=== PATIENT | male | born 1970 ===

== ENCOUNTER 2024-04-11 20:03 | Observation (INO) | payer BC ==
[~2024-04-11] VITALS: Ht 170.2 cm; Wt 79.0 kg
[2024-04-11] MEDS ORDERED: ondansetron HCL 4 MG/2 ML VIAL IV ONE (20:15)
[2024-04-11] MEDS ORDERED: SODIUM CHLORIDE 0.9% 1,000 ML IV ONE (20:15)
[2024-04-11] MEDS ORDERED: MORPHINE SULFATE 4 MG/ML VIAL IV ONE (20:15)
[2024-04-11 20:23] LABS: BASOPHILS 0.5 % (0-2); EOSINOPHILS 1.8 % (0-6); HEMATOCRIT 48.8 % (35.0-50.0); HEMOGLOBIN 16.5 g/dL (12.0-18.0); LYMPHOCYTES 20.4 % (24-44); MCH 30.1 (27-36); MCHC 33.8 g/dl (30-36); MCV 89.2 fl (81-99); MONOCYTES 11.1 % (0-12); NEUTROPHILS 66.2 % (39-80); PLATELET COUNT 274 K/uL (140-440); RBC 5.47 M/ul (4.3-5.7); RDW 13.8 (10.5-15.0)
[2024-04-11 20:38] LABS: ALBUMIN 3.9 g/dL (3.4-5.0); ALBUMIN/GLOBULIN RATIO 1.18 (1.1-2.4); ANION GAP 14.9 (7-21); BILIRUBIN, TOTAL 0.4 ng/dL (0.2-1.0); BUN/CREATININE RATIO 10.92 (6.0-28.6); CREATININE, SERUM 1.19 mg/dL (0.70-1.30); POTASSIUM 3.9 mmol/L (3.5-5.1); PROTEIN, TOTAL 7.2 g/dL (6.4-8.2)
[2024-04-11 21:31] LABS: BILIRUBIN, URINE NEGATIVE (negative); BLOOD/HGB, URINE NEGATIVE (Negative); KETONE, URINE NEGATIVE (Negative); LEUK ESTERASE, URINE NEGATIVE (negative); NITRITE, URINE NEGATIVE (negative)
[2024-04-11] MEDS ORDERED: FAMOTIDINE 20 MG/ 2 ML VIAL IV SCH (21:32)
[2024-04-11] MEDS ORDERED: ACETAMINOPHEN 325 MG TAB PO PRN (21:45)
[2024-04-11] MEDS ORDERED: ondansetron HCL 4 MG/2 ML VIAL IV PRN (21:45)
[2024-04-11] MEDS ORDERED: MORPHINE SULFATE 4 MG/ML VIAL IV PRN (21:45)
[2024-04-11] MEDS ORDERED: DEXTROSE 5% - LACTATED RINGERS 1,000 ML IV SCH (21:45)
[2024-04-11] MEDS ORDERED: CEFAZOLIN SODIUM 2 GM/20 ML SYR IV SCH (22:00)
[2024-04-11 22:09] VITALS: BP 144/77
--- NOTE | 2024-04-11 22:10 | NUR ---
PATIENT ARRIVED TO UNIT VIA STRETCHER. ABLE TO TRANSFER SELF INTO MED/SURG BED. REPORTS PAIN 4/10 AT THIS TIME. ABD TENDER AND GUARDED UPPER RIGHT QUADRANT. REPORTS NO FEELING OF NAUSEA AT THIS TIME. BOWEL TONES HYPOACTIVE UPPER QUADRANTS AND ACTIVE IN BILATERAL LOWER QUADRANTS. IV SITE PATENT, MAINTANCE FLUIDS HUNG AND INFUSING WITH NO ISSUES AT THIS TIME. PATIENT ORIENTED TO CALL LIGHT. NO FURTHER NEEDS AT THIS TIME. FAMILY AT BEDSIDE. CALL LIGHT WITHIN REACH.
[2024-04-11] MEDS ORDERED: ACETAMINOPHEN500 M1 PO (22:51)
[2024-04-11] MEDS ORDERED: IBUPROFEN200 MG PO (22:53)
[2024-04-11 23:20] VITALS: BP 144/77
[2024-04-12] VITALS (9 sets, daily range): BP systolic 106–135; BP diastolic 63–86
--- NOTE | 2024-04-12 | NUR ---
PATIENT RESTING IN BED WITH EYES CLOSED. RESPIRATIONS EVEN AND UNLABORED. IVF INFUSING WITH NO ISSUES AT THIS TIME. CALL LIGHT WITHIN REACH.
--- NOTE | 2024-04-12 02:08 | NUR ---
PATIENT RESTING IN BED. VSS. DENIES ANY NAUSEA AT THIS TIME. BOWEL TONES ACTIVE X 4 QUADRANTS. DENIES ANY PAIN AT THIS TIME. IVF INFUSING WITH NO ISSUES OR CONCERNS. NO NEEDS AT THIS TIME. CALL LIGHT WITHIN REACH.
[2024-04-12 05:25] LABS: HEMATOCRIT 44.5 % (35.0-50.0); HEMOGLOBIN 15.2 g/dL (12.0-18.0); MCH 30.6 (27-36); MCHC 34.1 g/dl (30-36); MCV 89.7 fl (81-99); PLATELET COUNT 237 K/uL (140-440); RBC 4.96 M/ul (4.3-5.7); RDW 13.9 (10.5-15.0)
[2024-04-12 05:41] LABS: ANION GAP 12.6 (7-21); BILIRUBIN, TOTAL 0.7 ng/dL (0.2-1.0); BUN/CREATININE RATIO 9.09 (6.0-28.6); CALCIUM 8.1 mg/dL (8.5-10.1); CREATININE, SERUM 0.99 mg/dL (0.70-1.30); POTASSIUM 3.6 mmol/L (3.5-5.1)
[2024-04-12 05:52] LABS: EOSINOPHILS, MANUAL DIFF 1; LYMPHOCYTES, MANUAL DIFF 20; MONOCYTES, MANUAL DIFF 9; NEUTROPHILS, MANUAL DIFF 70
--- NOTE | 2024-04-12 05:57 | NUR ---
patient resting in bed awake with at bedside. iv infusing with no issues at this time. scheduled meds given see mar. denies any pain or discomfort at this time. bowel tones active x 4 quadrants. No further needs at this time. call light within reach.
--- NOTE | 2024-04-12 07:47 | NUR ---
PT RESTING EYES CLOSED AT TIME OF SHIFT REPORT, LEFT UNDISTURBED. IS PRESENT ON THE COUCH. CALL LIGHT IN REACH PT REMAINS NPO
[2024-04-12] MEDS ORDERED: LACTATED RINGER'S 1,000 ML IV SCH (09:15)
[2024-04-12] MEDS ORDERED: FAMOTIDINE 20 MG/ 2 ML VIAL IV ONE (09:15)
--- NOTE | 2024-04-12 09:19 | NUR ---
DR DE LA O IN TO SEE PT. DISCUSSES PROCEEDURE AT LENGTH ALL QUESTIONS ANSWERED. PT WAS PROVIDED EDUCATION R/T KD PRIOR TO MD VISIT, PRINTED IN [place]. PT BEING PREPPED FOR O/R NOW
[2024-04-12] MEDS ORDERED: SODIUM CHLORIDE 0.9% 40 ML IV ONE (09:30)
[2024-04-12] MEDS ORDERED: iopamidoL 30 ML VIAL ONE (09:30)
--- NOTE | 2024-04-12 09:40 | HP ---
[facility] [address], [place] [address] Signed ADMISSION DATE: 04/11/2024 REASON FOR ADMISSION: Acute calculous cholecystitis and concurrent appendiceal fecalith. HISTORY OF PRESENT ILLNESS: This 54-year-old man is from [place], [place] accompanied by his . 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 He presented to the emergency room at approximately 10:30 last night where he was evaluated by Dr. Rios with complaints of right upper abdominal pain that had been going on since eating tacos earlier in the day. He had vomiting, was feeling very sick and had a fair amount of pain. He proceeded to drive to the [place] on his way home to [place] and began having worsening pain in the right upper abdomen. His presentation to the emergency room showed him to have normal vital signs, but tender in the right upper abdomen. A CT scan was performed, which showed gallstones without evidence of acute cholecystitis and large calcified fecalith in the distal appendix, but no appendiceal inflammation. His white count was elevated to 12.4. Chem profile essentially normal. Alkaline phosphatase 77, ALT 74, AST 18, and bilirubin 0.4. The patient has had episodic posterior right thoracic pain overtime and in retrospect probably has represented biliary colic from [id number]. A urinalysis was performed, which showed no evidence of blood loss less likely to be nephrolithiasis related. PAST MEDICAL HISTORY: Rather unremarkable. PAST SURGICAL HISTORY: He denies any prior operations. MEDICATIONS: His only medications at home are Tylenol and Motrin for abdominal pain. SOCIAL HISTORY: He does not use alcohol or drugs. He is . He is accompanied by his at this time. REVIEW OF SYSTEMS: He denies any shortness of breath or chest pain. His pain is improved since admission last night with IV antibiotics, parenteral pain medication and IV fluids. PHYSICAL EXAMINATION: GENERAL: Pleasant man, who speaks Albanian reasonably well. Electronically Signed By: BRITTON DE LA O MD 04/12/24 0940 PATIENT NAME: LORAINE ROMERO HISTORY AND PHYSICAL DATE OF : 74 REPORT #: [id number] PHYSICIAN: BRITTON DE LA O MD PCP: NO PRIMARY CARE PHYSICIAN REPORT IS CONFIDENTIAL AND NOT TO BE RELEASED WITHOUT AUTHORIZATION [facility] [address], [place] [address] Signed VITAL SIGNS: Height is 5 feet 7 inches, weight 279 kg. BMI is 27.3. NECK: Trachea is midline. CHEST: Clear. HEART: Regular without murmur. ABDOMEN: Nondistended and soft. There is mild tenderness in the right upper quadrant area, but there is no palpable mass. He has no ascites. He has no tenderness in the right lower quadrant. EXTREMITIES: Show no clubbing, cyanosis, or edema. LABORATORY STUDIES: This morning show an increased white count of 15.2, hematocrit 44.5, platelets 237,000. Chem profile showing normal liver enzymes except elevated ALT of 60. Lipase at admission was 45. Electrolytes are normal. Creatinine is 0.99, previously 1.19. A CT scan of the abdomen and pelvis confirms cholelithiasis without evidence of acute cholecystitis and large calcified fecalith of the distal appendix without appendiceal inflammation. ASSESSMENT: The patient has clinical findings consistent with acute calculous cholecystitis including elevated white count, right upper quadrant tenderness. CT scan finding showing gallstones. Ambiguous presentation initially suggested the possibility of appendicitis; however, he seems to have no tenderness in the right lower quadrant at this time. Nevertheless, given multiple fecaliths, the consideration for concurrent appendectomy may be made depending on clinical appearance of the appendix. I explained to the patient and his through the use of drawings on the white board in the room, the pathophysiology of biliary disease and recommendation of treatment to include cholecystectomy preferred by laparoscopic approach. Possible laparoscopic appendectomy would be a consideration also. The risk of bleeding, infection, bile duct injury, need for open procedure, need for common duct exploration, and of course failure to cure his symptoms were all reviewed in detail. They understand and wished to proceed. We will continue to provide IV fluids, antibiotics, parental pain medication, so forth anticipating surgery this morning. Britton De La O MD Electronically Signed By: BRITTON DE LA O MD 04/12/24 0940 PATIENT NAME: LORAINE ROMERO HISTORY AND PHYSICAL DATE OF : 74 REPORT #: [id number] PHYSICIAN: BRITTON DE LA O MD PCP: NO PRIMARY CARE PHYSICIAN REPORT IS CONFIDENTIAL AND NOT TO BE RELEASED WITHOUT AUTHORIZATION [facility] [address] [facility] [place], [place] [address] Signed /MODL /[id number] cc: Sharon Cardoso MD Copies: ~ Electronically Signed By: BRITTON DE LA O MD 04/12/24 0940 PATIENT NAME: LORAINE ROMERO HISTORY AND PHYSICAL DATE OF : 74 REPORT #: [id number] PHYSICIAN: BRITTON DE LA O MD PCP: NO PRIMARY CARE PHYSICIAN REPORT IS CONFIDENTIAL AND NOT TO BE RELEASED WITHOUT AUTHORIZATION
--- NOTE | 2024-04-12 09:43 | NUR ---
WIPE DOWN AND PRE-OP ED COMPLETED PT WAITING FOR O/R CREW DENIES QUESTIONS OR CONCERNS
[2024-04-12] MEDS ORDERED: KETAMINE in NS 50 MG/5 ML SYR ONE (10:13)
--- NOTE | 2024-04-12 10:32 | NUR ---
pt to o/r via bed
[2024-04-12] MEDS ORDERED: dexmedeTOMIDine HCl 200 MCG/2 ML VIAL ONE (10:34)
[2024-04-12] MEDS ORDERED: KETOROLAC TROMETHAMINE 30 MG/ML VIAL ONE (10:48)
[2024-04-12] MEDS ORDERED: SUGAMMADEX SODIUM 200 MG/2 ML ML ONE (10:48)
[2024-04-12] MEDS ORDERED: DEXAMETHASONE SOD PHOS 4 MG/ML VIAL ONE (10:48)
[2024-04-12] MEDS ORDERED: ondansetron HCL 4 MG/2 ML VIAL ONE (10:48)
[2024-04-12] MEDS ORDERED: ACETAMINOPHEN 1,000 MG/100 ML VIAL ONE (10:49)
[2024-04-12] MEDS ORDERED: LACTATED RINGER'S 1,000 ML IV ONE (12:02)
[2024-04-12] MEDS ORDERED: ROCURONIUM BROMIDE 50 MG/5 ML SYR ONE (12:03)
[2024-04-12] MEDS ORDERED: propofoL 200 MG/20 ML VIAL ONE (12:03)
[2024-04-12] MEDS ORDERED: IBLOOD GLUCOSE TEST STRIP 1 EA TEST VI PRN (12:15)
[2024-04-12] MEDS ORDERED: HYDROmorphone HCL 1 MG/ML SYR IV PRN (12:15)
[2024-04-12] MEDS ORDERED: fentaNYL citrate 50 MCG/ML SDV IV PRN (12:15)
[2024-04-12] MEDS ORDERED: ondansetron HCL 4 MG/2 ML VIAL IV PRN (12:15)
[2024-04-12] MEDS ORDERED: NALOXONE HCL 0.4 MG SYR IV PRN (12:15)
[2024-04-12] MEDS ORDERED: droPERidol 5 MG/2 ML VIAL IV PRN (12:15)
--- NOTE | 2024-04-12 12:25 | NUR ---
04/12/24 1225 Sheets,Hannah 1216 PT ARRIVED TO PACU ON 6L VIA MASK, RESP EVEN AND UNLABORED. PT REACTIVE TO PAINFUL STIMULI BUT EYES REMAIN CLOSED AND PT UNABLE TO FOLLOW COMMANDS. 1221 PT MOVING ARMS IN BED AND RN TRYING TO REORIENT PT TO PACU, PT EYES REMAIN CLOSED. SMALL AMOUNT OF COUGHING NOTED. 1223 PT RESTING AND RELAXED IN BED, RESP EVEN AND UNLABORED. 1225 PT REACHING UP FOR HIS FACE, O2 REMOVED.
[2024-04-12] MEDS ORDERED: PERCOCET 7.5-31 EACH PO (12:43)
[2024-04-12] MEDS ORDERED: MOTRIN IB200 MG PO (12:44)
[2024-04-12] MEDS ORDERED: TYLENOL EXTRA500 MG PO (12:44)
[2024-04-12] MEDS ORDERED: IBUPROFEN 600 MG TAB PO PRN (12:45)
[2024-04-12] MEDS ORDERED: ACETAMINOPHEN 500 MG TAB PO PRN (12:45)
[2024-04-12] MEDS ORDERED: OXYCODONE/APAP 7.5/325 TAB PO PRN (12:45)
[2024-04-12] MEDS ORDERED: fentaNYL citrate 50 MCG/ML SDV ONE (12:58)
--- NOTE | 2024-04-12 13:20 | NUR ---
PT BACK FROM O/R ALERT AND INTERACTIVE. IS PRESENT. PT SIPPING WATER DENIES PAIN OR NEEDS OF. SCD'S AND PULSE OX IN PLACE
--- NOTE | 2024-04-12 13:34 | NUR ---
PT USES URINAL IS ABLE TO VOID WITHOUT DIFFICULTY. IS PRESENT IN THE ROOM. PT AGREES HIS ABDOMEN HURTS A BIT, APPLESAUCE CRACKER AND PAIN PILL ADMINISTERED
[2024-04-12] MEDS ORDERED: CEFAZOLIN SODIUM 2 GM/20 ML SYR IV SCH (14:00)
--- NOTE | 2024-04-12 14:24 | NUR ---
PT CONTINUES AWAKE VISITING ON THE PHONE. DENIES PAIN OR NAUSEA. PT SIPPING H20 TOLERATES APPLESAUCE CRACKERS AND PAIN PILL.
--- NOTE | 2024-04-12 15:15 | NUR ---
PT CONTINUES TO DO WELL POST OP. STANDS AT EDGE OF BED AND AMBULATES THE ROOM STEADY ON HIS FEET. CHOOSES BED INSTEAD OF CHAIR AFTERWARD. HAS GONE TO GET FRUIT AND OTHER PT FOOD REQUESTS. PT SIPPING WATER. DENIES PAIN OR NAUSEA, INQUIRES ABOUT GOING HOME TODAY.
--- NOTE | 2024-04-12 16:43 | NUR ---
PT REQUESTS TO GO HOME AFTER EATING EVENING MEAL. STATES HE FEELS FINE. DR DE LA O CONTACTED AND HE STATES THAT WILL BE FINE IF PT AND HIS BOTH FEEL CERTAIN.
--- NOTE | 2024-04-15 12:22 | OR ---
[facility] [address], [place] [address] Signed DATE OF OPERATION: 04/11/2024 SURGEON: Britton De La O MD PREOPERATIVE DIAGNOSES: 1. Acute calculous cholecystitis. 2. Enlarged distal tip of appendix, possible fecalith. POSTOPERATIVE DIAGNOSES: 1. Acute calculous cholecystitis. 2. Enlarged distal appendix initially thought to be neoplasm, probably more likely large fecalith. PROCEDURES: 1. Laparoscopic cholecystectomy with intraoperative cholangiogram. 2. Surgeon-directed fluoroscopy. 3. Laparoscopic appendectomy. ANESTHESIA: General endotracheal, Betty Baljit, SOLE STAINER and local 10 mL of 0.25% Marcaine with epinephrine. INDICATION: This 54-year-old man was traveling through this area from [place], [place] where he lives. He had been in the [facility] yesterday and at the [facility] last night. He began having right subcostal and epigastric pain following taco meal later in the day yesterday. His symptoms worsened enough and he had nausea, vomiting and tenderness on abdominal exam. His tenderness was in the right upper and right mid abdomen. A CT scan was performed under the direction of Dr. Rios, the emergency room physician. This showed at least one gallstone in the gallbladder apparently wedged in the infundibulum as well as possible multiple gallstones of the appendix. The patient has been fluid resuscitated, now to undergo cholecystectomy and possible appendectomy depending on the findings. He understands as does his the risk of bleeding, infection, bile duct injury, need for open procedure and need for other indicated procedures. Understanding this, they wished to proceed. FINDINGS: Indeed the gallbladder was inflamed. It was edematous. There were omental adhesions to its undersurface. Liver was normal. Cholangiogram was normal with small sized ducts but conventional anatomy and a relatively long cystic duct. The gallbladder itself had Electronically Signed By: BRITTON DE LA O MD 04/15/24 1222 PATIENT NAME: LORAINE ROMERO OPERATIVE REPORT DATE OF : 74 REPORT #: [id number] PHYSICIAN: BRITTON DE LA O MD PCP: NO PRIMARY CARE PHYSICIAN REPORT IS CONFIDENTIAL AND NOT TO BE RELEASED WITHOUT AUTHORIZATION [facility] [address], [place] [address] Signed cholesterolosis as well as a small 1 cm dark gallstone wedged into the infundibulum. Cholangiogram was normal as described. The appendix itself was well visualized and had some chronic scarring associated with it. The distal portion was bulbous and quite large and suggestive actually of neoplasm. Appendectomy was additionally performed. Once the appendix was extracted from the abdomen, palpation of the distal portion showed the enlargement to be likely related to a large fecalith rather than neoplasm proper. Wide resection of the mesoappendix was accomplished as well however. PROCEDURE IN DETAIL: The patient was brought to the operating room and given a general endotracheal anesthetic. Preoperative antibiotic Ancef was given. Sequential compression device stockings were used and heparin subcutaneously administered. The abdomen was clipped and prepared with chlorhexidine solution and draped sterilely. An infraumbilical incision was made and using an open Eleazar cannula technique pneumoperitoneum was achieved to a level of 14 mmHg of carbon dioxide gas. Intra-abdominal inspection showed no sign of ascites or carcinomatosis. The liver appeared normal. The gallbladder was partially obscured from view, but did have inflammatory change and edema. Three additional trocars were placed in their usual configuration in the subxiphoid, right midclavicular, and right anterior axillary line. The gallbladder was elevated cephalad and found to have adhesions adherent to its undersurface. These were taken down with blunt and electrocautery dissection. This allowed for better elevation of the gallbladder. The gallbladder was retracted laterally and using blunt and electrocautery dissection, the triangle of Calot was dissected free. A dominant cystic arterial branch was identified and was doubly clipped. Once the critical view of safety was well demonstrated, the clip was applied across the gallbladder cystic duct junction and a transverse choledochotomy was made in the cystic duct. Using an [employer] type cholangiocatheter system, intraoperative cholangiography was undertaken showing free flow of contrast in the biliary tree with prompt emptying into the duodenum. The cystic duct was quite elongated and the biliary tree was surprisingly narrow, but without stricture or abnormality otherwise. There was no sign of filling defect, biliary anomaly, or stone. There was no neoplasm. Catheter was removed and the cystic duct was triply clipped and divided and the gallbladder was dissected free in a retrograde fashion using electrocautery. Clips were applied to small vessels in the liver bed as well. Gallbladder was extracted through the infraumbilical port site without problem, opened on the back table and found to have a relatively small 1 cm oblong dark gallstone within the infundibulum. Cholesterolosis of mucosa was noted as well. Irrigation was undertaken in the subhepatic space. There was no sign of bleeding or other problem. Electronically Signed By: BRITTON DE LA O MD 04/15/24 1222 PATIENT NAME: LORAINE ROMERO OPERATIVE REPORT DATE OF : 74 REPORT #: [id number] PHYSICIAN: BRITTON DE LA O MD PCP: NO PRIMARY CARE PHYSICIAN REPORT IS CONFIDENTIAL AND NOT TO BE RELEASED WITHOUT AUTHORIZATION [facility] [address], [place] [address] Signed Attention was turned towards the appendix. The camera was replaced to the epigastric port and using single instrument manipulation, identification of the right colon and cecum was undertaken. The patient had been in a reverse Trendelenburg [id number] configuration but was replaced to supine [id number] position. The appendix was not readily visible and therefore a right lower quadrant 5 mm port was placed and with two-hand manipulation, the cecum identified and ultimately appendix. The appendix did not look acutely inflamed, did have some injection. The distal portion of the appendix had a large bulbous end to it which was suggestive of possible carcinoid tumor despite the preoperative CT scan interpretation of multiple fecaliths. Excision was clearly indicated. Using blunt and electrocautery dissection, the mesoappendix was from the surrounding tissue. The appendix was relatively elongated. Ultimately, the base was identified and a window created between the base of the appendix and the appendix itself. Using an Endo-NICO stapling device with a vascular load, the base of the appendix was transected and flushed with the cecum. This allowed for better manipulation of the mesoappendix which was wider, we resected ultimately. The Endo-NICO stapling device was used to secure the vascular pedicle of the mesoappendix. The appendix was placed in an endobag and extracted through the infraumbilical port site. Palpation of the appendix itself showed the bulbous enlargement of the distal portion to be related to a firm probable fecalith rather than neoplasm proper. It was sent for permanent pathology. The appendix was not opened. Irrigation was undertaken in the right lower quadrant. There was no sign of bleeding or other problems. Staple lines were secured. The trocars were removed under direct visualization showing no sign of bleeding. The infraumbilical fascial incision was reapproximated with interrupted 0 Vicryl suture. All wounds were injected with 10 mL of 0.25% Marcaine with epinephrine in total. The skin was closed with interrupted 3-0 Vicryl. Steri-Strips were applied. The patient was ultimately extubated and transferred to the recovery room in good condition having suffered no complication. Sponge, needle, and instrument counts were reported as correct x3. MD BEBA Bentley/MODL /[id number] Electronically Signed By: BRITTON DE LA O MD 04/15/24 1222 PATIENT NAME: LORAINE ROMERO OPERATIVE REPORT DATE OF : 74 REPORT #: [id number] PHYSICIAN: BRITTON DE LA O MD PCP: NO PRIMARY CARE PHYSICIAN REPORT IS CONFIDENTIAL AND NOT TO BE RELEASED WITHOUT AUTHORIZATION [facility] [address] [place] [id number] Signed cc: Dr. Sharon Rios Copies: ~ Electronically Signed By: BRITTON DE LA O MD 04/15/24 1222 PATIENT NAME: LORAINE ROMERO OPERATIVE REPORT DATE OF : 74 REPORT #: [id number] PHYSICIAN: BRITTON DE LA O MD PCP: NO PRIMARY CARE PHYSICIAN REPORT IS CONFIDENTIAL AND NOT TO BE RELEASED WITHOUT AUTHORIZATION
--- NOTE | 2024-04-20 13:35 | PATH ---
[facility] [address], [place] [address] Signed SPECIMEN(S): A GALLBLADDER WITH STONE SPECIMEN(S): B APPENDIX WITH FECOLITH SPECIMEN SOURCE: A. GALLBLADDER WITH STONE B. APPENDIX WITH FECOLITH CLINICAL HISTORY: Cholelithiasis FINAL PATHOLOGIC DIAGNOSIS: A. Gallbladder, cholecystectomy: - Chronic calculous cholecystitis - One reactive lymph node B. Appendix, appendectomy: - Early acute appendicitis with a fecalith BRP MICROSCOPIC EXAMINATION: Histologic sections of all submitted blocks are examined by light microscopy. These findings, together with the gross examination, support the pathologic diagnosis. GROSS DESCRIPTION: A. The specimen, labeled and designated "Payton A" and designated on the requisition " gallbladder with stone," is received in formalin and consists of Specimen: Previously opened gallbladder. Dimensions: 7.0 x 4.5 x 0.4 cm. Serosa: Samaniego to violaceous smooth. Cystic Duct: Unobstructed, margin is inked black and shaved. Calculi: One green ovoid calculus (0.8 x 0.7 x 0.7 cm). Mucosa: Green and velvety with yellow flecking. Wall thickness: 0.3 cm. Lymph node: One samaniego possible pericystic lymph node measuring 0.8 cm in greatest mentioned, submitted entirely. Additional: None. Orthopedics Pediatric Physician sections are submitted in (A1). B. The specimen, labeled and designated "Payton, B" and designated on the requisition "appendix with fecalith," is received in formalin and consists of Specimen: Appendix with mesoappendix. Dimensions: 7.7 x 3.8 x 2.0 cm. PATIENT NAME: LORAINE ROMERO PATHOLOGY DATE OF : 74 REPORT #: [id number] PHYSICIAN: [facility] PCP: NO PRIMARY CARE PHYSICIAN REPORT IS CONFIDENTIAL AND NOT TO BE RELEASED WITHOUT AUTHORIZATION [facility] [address], [place] [address] Signed Serosa: Samaniego-pink. Defect: Not grossly identified. Inking: Staple line is inked Blue. Mucosa: Duque-samaniego to red-brown markedly attenuated at the tip. Fecalith: One brown-samaniego irregularly shaped and poorly calcified fecalith (2.3 x 1.5 x 1.4 cm) occluding the distal lumen. Additional: None. Orthopedics Pediatric Physician sections are submitted in (B1). AC (under the direct supervision of a pathologist) The Gross Description was prepared using a voice recognition system. The report was reviewed for accuracy; however, sound-alike word errors, addition and/or deletions may occur. If there is any question about this report, please contact Client Services. ADDITIONAL NOTES: Immunohistochemical and/or in situ hybridization studies if performed in this case included appropriate positive controls that reacted as expected. This test was developed and its performance characteristics determined by [facility]. It has not been cleared or approved by the U.S. Food and Drug Administration. The FDA has determined that such clearance or approval is not necessary. This test is used for clinical purposes. It should not be regarded as investigational or for research. [facility] is certified under the Clinical Laboratory Improvement Amendments of 1988 (CLIA) as qualified to perform high complexity clinical laboratory testing. PERFORMING LABORATORY: Technical component was performed by [facility], [address] [place] [id number] (CLIA# [id number]). Professional interpretation was performed by [facility] [address] [facility] [id number] Diagnostician: Aneudy Butcher MD Pathologist Electronically Signed 04/20/2024 Copies: PATIENT NAME: LORAINE ROMERO PATHOLOGY DATE OF : 74 REPORT #: [id number] PHYSICIAN: [facility] PCP: NO PRIMARY CARE PHYSICIAN REPORT IS CONFIDENTIAL AND NOT TO BE RELEASED WITHOUT AUTHORIZATION [address] [address] Signed ~ PATIENT NAME: LORAINE ROMERO PATHOLOGY DATE OF : 74 REPORT #: [id number] PHYSICIAN: [facility] PCP: NO PRIMARY CARE PHYSICIAN REPORT IS CONFIDENTIAL AND NOT TO BE RELEASED WITHOUT AUTHORIZATION
== END 2024-04-12 17:05 | disposition home or self-care (01) ==
LOC: ED 20:03 → MS 20:05 → ED 21:47 → MS 04-12 17:05
PROVIDERS: Family Medicine; ADMIT Surgery; ATTEND Surgery
PROC: 0FT44ZZ Resection of Gallbladder, Percutaneous Endoscopic Approach (ICD-10-PCS; principal; 2024-04-11)
PROC: 0DTJ0ZZ Resection of Appendix, Open Approach (ICD-10-PCS; 2024-04-11)
DX: K81.1 Chronic cholecystitis (principal); K81.0 Acute cholecystitis; K35.80 Unspecified acute appendicitis; K38.1 Appendicular concretions; K38.8 Other specified diseases of appendix; K66.0 Peritoneal adhesions (postprocedural) (postinfection)
CPT/HCPCS: 00790; 36415; 74177; 74300; 80053; 81003; 83690; 85025; 96361; 96375; 96376; 99285-25; G0378; J0131; J0690; J1100; J1885; J2270; J2405; J2704; J3010; J3490; J7030; J7121; Q9967